=== PATIENT | female | born 1950 | race Caucasian/White ===

== ENCOUNTER 2021-12-12 06:55 | Observation (INO) ==
[~2021-12-12 06:55] MED LIST: Buffered Lidocaine 1% SYRIN 1 ml INTRADERM ONE
[2021-12-12] MEDS ORDERED: Famotidine IV 10 MG/ML 2 ml VIAL (20 mg) ONE (07:09)
[2021-12-12] MEDS ORDERED: ceFAZolin 2 GM PREMIX 2 GM/50 ML BAG ONE (07:10)
[2021-12-12] MEDS: Lactated Ringers 1000 ml BAG 1,000 ML IV SCH ×2 (07:34→12:42)
[2021-12-12] MEDS ORDERED: Ropivacaine 5 MG/ML 20 ML VIAL 0.5% (100 MG) ONE (08:01)
[2021-12-12] MEDS ORDERED: Midazolam 2 mg/2 ml VIAL 1 mg/ml 2 ml VIAL (2 mg) ONE (08:07)
[2021-12-12] MEDS ORDERED: fentaNYL 100 mcg/2 ml 50 MCG/ML VIAL ONE (08:07)
[2021-12-12] MEDS ORDERED: ROPIVACAINE 5 MG/ML 30 ML BTL (0.5%) ONE (08:12)
[2021-12-12] MEDS ORDERED: Lactulose 30 ml UDC PO PRN (08:37)
[2021-12-12] MEDS ORDERED: Morphine 2 MG/ML SYRINGE IV PRN (08:37)
[2021-12-12] MEDS ORDERED: Magnesium Hydroxide LIQ 30 ML UDC PO PRN (08:37)
[2021-12-12] MEDS ORDERED: diPHENhydraMINE 25 mg TAB PO PRN (08:37)
[2021-12-12] MEDS ORDERED: Ondansetron 4 mg VIAL 2 MG/ML 2 ml VIAL IV PRN (08:37)
[2021-12-12] MEDS ORDERED: Ondansetron ODT 4 mg TAB 4 MG TAB PO PRN ×2 (08:37→10:11)
[2021-12-12] MEDS ORDERED: diPHENhydraMINE IV 50 MG/ML 1 ml VIAL (BENADRYL) IV PRN (08:37)
[2021-12-12] MEDS ORDERED: Lactated Ringers 1000 ml BAG 1,000 ML IV SCH (09:00)
[2021-12-12] MEDS ORDERED: EPHEDrine (Pressors) 50 MG/ML VIAL ONE (09:20)
[2021-12-12] MEDS ORDERED: Naloxone 0.4 mg VIAL 0.4 mg/ml 1 ml VIAL IV PRN (10:11)
[2021-12-12] MEDS ORDERED: fentaNYL 100 mcg/2 ml 50 MCG/ML VIAL IV PRN (10:11)
[2021-12-12] MEDS ORDERED: Ondansetron ODT 4 mg TAB 4 MG TAB ONE (12:37)
[2021-12-12] MEDS: Vitamin THERAPEUTIC TAB PO SCH (14:41)
[2021-12-12] MEDS: Magnesium Hydroxide LIQ 30 ML UDC PO SCH ×2 (14:41→20:24)
[2021-12-12] MEDS: ceFAZolin 1 GM ADVAN 1 GM in NS 0.9% 50 ML 50 ML IVPB SCH (16:44)
[2021-12-13] MEDS: ceFAZolin 1 GM ADVAN 1 GM in NS 0.9% 50 ML 50 ML IVPB SCH ×2 (00:36→07:31)
[2021-12-13] MEDS ORDERED: Famotidine IV 10 MG/ML 2 ml VIAL (20 mg) IV ONE (06:00)
[2021-12-13 06:06] LABS: Hematocrit 32 % (35-47); Hemoglobin 10.9 g/dL (12.0-16.0); Mean Platelet Volume 8.3 fL (7.4-10.4); Platelet Count 253 10^3/uL (150-450)
[2021-12-13 06:27] LABS: Calcium 8.6 mg/dL (8.6-10.3); Potassium 4.4 mmol/L (3.5-5.0); eGFR CKD-EPI 74.9 (>60)
[2021-12-13 07:49] VITALS: BP 122/72
[2021-12-13] MEDS: Magnesium Hydroxide LIQ 30 ML UDC PO SCH (08:51)
[2021-12-13] MEDS: Vitamin THERAPEUTIC TAB PO SCH (08:52)
[2021-12-15] MEDS ORDERED: NF: Estradiol VAGINAL TAB (NF) 10 MCG VAG.TAB VAGINAL SCH (09:00)
== END 2021-12-13 12:05 | disposition home or self-care (01) ==
LOC: OR 06:55 → SSU 06:55
PROVIDERS: ADMIT Orthopaedic Surgery Adult Reconstructive Orthopaedic Surgery; ATTEND Orthopaedic Surgery Adult Reconstructive Orthopaedic Surgery

== ENCOUNTER 2022-09-11 09:35 | Observation (INO) ==
[~2022-09-11 09:35] MED LIST changes: +Lactated Ringers 1000 ml BAG 1,000 ML IV SCH
[2022-09-11] MEDS ORDERED: ceFAZolin 2 GM in NS PREMIX 2 GM/100 ML BAG IVPB ONE (09:52)
[2022-09-11] MEDS ORDERED: Prochlorperazine 5 mg/ml 2 ml VIAL (10 mg) IV PRN (10:16)
[2022-09-11] MEDS ORDERED: Naloxone 0.4 mg VIAL 0.4 mg/ml 1 ml VIAL IV PRN (10:16)
[2022-09-11] MEDS ORDERED: ROPIVACAINE 5 MG/ML 30 ML BTL (0.5%) ONE (10:59)
[2022-09-11] MEDS ORDERED: fentaNYL 250 mcg/5 ml 50 MCG/ML 5 ml VIAL (250 MCG) ONE (11:01)
[2022-09-11] MEDS ORDERED: Midazolam 2 mg/2 ml VIAL 1 mg/ml 2 ml VIAL (2 mg) ONE (11:01)
[2022-09-11] MEDS ORDERED: Ropivacaine 5 MG/ML 20 ML VIAL 0.5% (100 MG) ONE (11:25)
[2022-09-11] MEDS ORDERED: Propofol 10 MG/ML 20 ML BTL ONE ×2 (11:49→13:59)
[2022-09-11] MEDS ORDERED: Dexamethasone IV 4 MG/ML VIAL 1 ml VIAL ONE (12:21)
[2022-09-11] MEDS ORDERED: Ondansetron 4 mg VIAL 2 MG/ML 2 ml VIAL ONE (12:21)
[2022-09-11] MEDS ORDERED: Glycopyrrolate IV 0.2 MG/ML 1 ML VIAL ONE (12:33)
[2022-09-11] MEDS ORDERED: Ondansetron 4 mg VIAL 2 MG/ML 2 ml VIAL IV PRN (14:26)
[2022-09-11] MEDS ORDERED: Magnesium Hydroxide LIQ 30 ML UDC PO PRN (14:26)
[2022-09-11] MEDS ORDERED: Ondansetron ODT 4 mg TAB 4 MG TAB PO PRN (14:26)
[2022-09-11] MEDS ORDERED: Morphine 2 MG/ML SYRINGE IV PRN (14:26)
[2022-09-11] MEDS ORDERED: Lactulose 30 ml UDC PO PRN (14:26)
[2022-09-11] MEDS ORDERED: HYDROmorphone 1 MG/1 ML SYRINGE ONE (14:32)
[2022-09-11] MEDS: HYDROmorphone 1 MG/1 ML SYRINGE IV PRN ×3 (14:34→15:16)
[2022-09-11] MEDS ORDERED: Lactated Ringers 1000 ml BAG 1,000 ML IV SCH (15:00)
[2022-09-11] MEDS ORDERED: ceFAZolin 1 GM ADVAN 1 GM in NS 0.9% 50 ML 50 ML IVPB SCH (15:00)
[2022-09-11] MEDS: ceFAZolin 1 GM ADVAN 1 GM in NS 0.9% 50 ML 50 ML IVPB SCH (20:29)
[2022-09-11] MEDS: Magnesium Hydroxide LIQ 30 ML UDC PO SCH (21:23)
[2022-09-12] MEDS: ceFAZolin 1 GM ADVAN 1 GM in NS 0.9% 50 ML 50 ML IVPB SCH ×2 (04:35→12:00)
[2022-09-12 06:18] LABS: Hematocrit 33 % (35-47); Mean Platelet Volume 8.2 fL (7.4-10.4); Platelet Count 358 10^3/uL (150-450)
[2022-09-12 06:40] LABS: Calcium 9.4 mg/dL (8.6-10.3); eGFR CKD-EPI 73.3 (>60)
[2022-09-12] MEDS: Magnesium Hydroxide LIQ 30 ML UDC PO SCH (08:36)
[2022-09-12] MEDS ORDERED: Vitamin THERAPEUTIC TAB PO SCH (09:00)
[2022-09-12 12:47] VITALS: BP 122/66
== END 2022-09-12 13:30 | disposition home or self-care (01) ==
LOC: SSU 09:35 → OR 09:35 → EDSTATUS 15:00
PROVIDERS: ADMIT Orthopaedic Surgery Adult Reconstructive Orthopaedic Surgery; ATTEND Orthopaedic Surgery Adult Reconstructive Orthopaedic Surgery